=== PATIENT | male | born 1965 | race Caucasian/White ===

== ENCOUNTER 2016-12-27 13:18 | Inpatient (IN) ==
[2016-12-27 13:35] LABS: Bilirubin,Urine Negative (Negative); Blood,Urine Trace (Negative); Clarity,Urine Clear (Clear); Color,Urine Yellow (Yellow); Glucose,Urine (UA) Normal (Normal); Ketones,Urine Negative (Negative); Leukocyte Esterase,Urine Trace (Negative); Nitrite,Urine Negative (Negative); PH,Urine 6.5 pH Units (5.0-8.0); Protein,Urine Negative (Neg-Trace); Specific Gravity,Urine 1.022 (1.010-1.025); Urobilinogen,Urine Normal (Normal)
[2016-12-27 13:37] LABS: Bacteria,Urine None Seen per hpf (None-Few); Hyaline Casts,Urine None Seen per lpf (None-Few); Squamous Epithelial Cell,Urine Few per lpf (None-Few)
[2016-12-27 13:49] LABS: Basophils # 0.2 K/mcL (0.0-0.2); Basophils % 1.1 %; Eosinophils # 0.4 K/mcL (0.0-0.6); Hematocrit 48.1 % (37.5-50.1); Hemoglobin 16.3 g/dL (12.9-16.9); Immature Granulocytes % 0.4 % (0-4); Lymphocytes # 3.9 K/mcL (0.6-4.6); Lymphocytes % 27.8 %; Mean Corpuscular HGB Conc 33.9 g/dL (31.6-35.5); Mean Corpuscular Hemoglobin 28.5 pg (28.0-33.3); Mean Corpuscular Volume 84.1 fL (83.0-100.0); Mean Platelet Volume 9.8 fL (9.4-12.4); Monocytes # 0.9 K/mcL (0.0-1.3); Monocytes % 6.6 %; Neutrophils # 8.6 K/mcL (1.6-8.9); Platelet Count 269 K/mcL (140-400); Red Blood Count 5.72 M/mcL (4.19-5.50); Red Cell Distribution Width 13.2 % (11.5-14.5); Segmented Neutrophils % 61.1 %
[2016-12-27 14:04] LABS: Alanine Aminotransferase 33 Units/L (0-55); Albumin 3.7 g/dL (3.5-5.0); Alkaline Phosphatase 68 Units/L (38-126); Aspartate Amino Transferase 42 Units/L (5-34); BUN/Creatinine Ratio 14 (6-26); Bilirubin,Direct 0.1 mg/dL (0.0-0.5); Bilirubin,Indirect 0.1 mg/dL (0.0-1.2); Bilirubin,Total < 0.2 mg/dL (0.2-1.2); Blood Urea Nitrogen 16 mg/dL (8-26); Calcium 9.7 mg/dL (8.6-10.8); Carbon Dioxide 25 mEq/L (19-29); Chloride 104 mEq/L (98-109); Globulin 3.6 g/dL (2.4-3.5); Glucose 112 mg/dL (70-99); Lipase 568 Units/L (8-78); Osmolality,Calculated 292 (280-300); Potassium 3.8 mEq/L (3.5-4.5); Sodium 140 mEq/L (136-145); Total Protein 7.3 g/dL (6.0-8.3); eGFR For African Americans > 60 (> 60); eGFR For Non-African Americans > 60 (> 60)
[2016-12-27] MEDS ORDERED: Ondansetron 4 MG/2 ML VIAL IVP ONE (15:44)
[2016-12-27] MEDS ORDERED: 0.9 % Sodium Chloride 1,000 ML IVC ONE (15:44)
--- NOTE | 2016-12-27 15:51 | Emergency Department Note ---
Disposition Clinical Impression: Pancreatitis Qualifiers: Chronicity: acute Pancreatitis type: unspecified pancreatitis type Acute pancreatitis complication: unspecified Qualified Code(s): K85.90 - Acute pancreatitis without necrosis or infection, unspecified Disposition: Admitted As Inpatient Condition: Good Abdominal Pain HPI - General Chief Complaint: ED Abdominal Pain Stated Complaint: ABD Pain Time Seen by Provider: 12/27/16 15:30 Source: patient Mode of arrival: private vehicle Limitations: no limitations Nursing Notes Reviewed: Yes Vital Signs Reviewed: Yes - History of Present Illness HPI Narrative: 51-year-old male presents to the ER with a chief complaint of abdominal pain. Patient states it awoke him from sleep this morning. Reports it is around his epigastric area that radiates into his mid abdomen at times. Reports had issues with his gallbladder was functioning at 31% around 6 months ago but they elected not to remove it at that time. He has felt nauseated but no vomiting or diarrhea. No fevers at home. No sick contacts. History of appendectomy as a child. No other complaints. Pt Subjective Complaint: abdominal pain Onset (ago): hour(s) Consistency: intermittent Location: periumbilical, epigastric Pain Severity: mild Pain Scale: 2 Quality: aching Radiation: none Migration to: no migration Improves with: nothing Worsens with: nothing Associated symptoms: Reports: nausea. Denies: vomiting, diarrhea, fever, dysuria, hematuria Treatments prior to arrival: none - Related Data Home Medications Medication Instructions Recorded Confirmed Aspirin/Acetaminophen/Caffeine 1 tab PO BID PRN 10/07/15 12/27/16 [Excedrin Extra Strength Caplet] Lisinopril [Zestril] 5 mg PO DAILY 10/07/15 12/27/16 Multivitamin [Multi-Day Vitamins] 1 tab PO DAILY 10/07/15 12/27/16 hydroCHLOROthiazide 25 mg PO DAILY 10/07/15 12/27/16 [Hydrochlorothiazide] Allergies Allergy/AdvReac Type Severity Reaction Status Date / Time No Known Allergies Allergy Verified 12/27/16 19:14 All systems ED: reviewed and negative except as stated. Constitutional: Denies: fever Gastrointestinal: Reports: abdominal pain, nausea. Denies: vomiting, diarrhea Genitourinary: Denies: dysuria, hematuria Musculoskeletal: Reports: back pain Abdominal Pain PMH - Past Medical History Medical history: Reports: other Male Surgical History: Reports: no surgical history Psychiatric history: Reports: no psych history - Social History Smoking status: Current every day smoker Alcohol use: Reports: occasionally Drug use: Reports: none Physical Exam - General Limitations: no limitations General appearance: alert, in no apparent distress - Head Head exam: atraumatic, normocephalic - Eye Eye exam: Present: normal appearance - ENT ENT exam: normal exam - Neck Neck exam: Present: normal inspection - Chest Chest inspection: Present: normal inspection, symmetric chest wall rise - Respiratory Respiratory exam: Present: normal lung sounds bilaterally - Cardiovascular Cardiovascular exam: Present: regular rate, normal rhythm, normal heart sounds - Abdominal Exam Abdominal exam: Present: soft, tenderness (mild epigastric and eliud-umbilical tenderness to palpation). Absent: distention, guarding, rigidity - Extremities Exam Extremities exam: Present: normal inspection, full ROM - Expanded Upper Extremity Exam Shoulder exam: Present: normal inspection, full ROM Arm exam: Present: normal inspection, full ROM Elbow exam: Present: normal inspection, full ROM Forearm/Wrist exam: Present: normal inspection, full ROM Hand exam: Present: normal inspection, full ROM - Expanded Lower Extremity Exam Hip/Pelvis exam: Present: normal inspection, full ROM Upper leg exam: Present: normal inspection, full ROM Knee exam: Present: normal inspection, full ROM Lower leg exam: Present: normal inspection, full ROM Ankle exam: Present: normal inspection, full ROM Foot/toe exam: Present: normal inspection, full ROM Neurovascular/Tendon exam: Absent: motor deficit, sensory deficit - Neurological Exam Neurological exam: Present: alert - Psychiatric Psychiatric exam: Present: normal affect - Skin Skin exam: Present: warm, dry, intact Course Course Narrative: Patient seen and examined. No history of pancreatitis previously. We will obtain a CT scan of the abdomen and pelvis for evaluation. Patient declines anything for pain at this time. Vital Signs Temperature 98.8 F 12/27/16 13:26 Pulse Rate 87 12/27/16 13:26 Respiratory Rate 16 12/27/16 13:26 Blood Pressure 146/98 12/27/16 13:26 O2 Sat by Pulse Oximetry 95 12/27/16 13:26 Temperature 98.0 F 12/29/16 07:02 Pulse Rate 71 12/29/16 07:02 Respiratory Rate 16 12/29/16 07:02 Blood Pressure 123/77 12/29/16 07:02 O2 Sat by Pulse Oximetry 97 12/29/16 07:02 Oxygen Delivery Oxygen Delivery Room Air Abdominal Pain - MDM Narrative Medical decision making narrative: 51-year-old male presents to the ER due to abdominal pain. Woke him up from sleep last night. Noted to have a lipase here over 500. White count 14. LFTs and bilirubin within normal limits. CT scan shows no acute abnormalities. Patient admitted to the hospitalist service. - Lab Data Lab results reviewed: Yes I reviewed the patient's lab results. Result diagrams: 12/29/16 06:19 12/29/16 06:19 Lab Results 12/27/16 12/27/16 12/27/16 Range/Units 13:29 13:42 13:42 WBC 14.0 H (4.3-11.1) K/mcL RBC 5.72 H (4.19-5.50) M/mcL Hgb 16.3 (12.9-16.9) g/dL Hct 48.1 (37.5-50.1) % MCV 84.1 (83.0-100.0) fL MCH 28.5 (28.0-33.3) pg MCHC 33.9 (31.6-35.5) g/dL RDW 13.2 (11.5-14.5) % Plt Count 269 (140-400) K/mcL MPV 9.8 (9.4-12.4) fL Immature Gran % 0.4 (0-4) % Seg Neutrophils % 61.1 % Lymphocytes % 27.8 % Monocytes % 6.6 % Eosinophils % 3.0 % Basophils % 1.1 % Neutrophils # 8.6 (1.6-8.9) K/mcL Lymphocytes # 3.9 (0.6-4.6) K/mcL Monocytes # 0.9 (0.0-1.3) K/mcL Eosinophils # 0.4 (0.0-0.6) K/mcL Basophils # 0.2 (0.0-0.2) K/mcL Sodium 140 (136-145) mEq/L Potassium 3.8 (3.5-4.5) mEq/L Chloride 104 (98-109) mEq/L Carbon Dioxide 25 (19-29) mEq/L BUN 16 (8-26) mg/dL Creatinine 1.16 (0.72-1.25) mg/dL Est GFR ( Amer) > 60 (> 60) Est GFR (Non-Af Amer) > 60 (> 60) BUN/Creatinine Ratio 14 (6-26) Glucose 112 H (70-99) mg/dL Calculated Osmolality 292 (280-300) Calcium 9.7 (8.6-10.8) mg/dL Total Bilirubin < 0.2 L (0.2-1.2) mg/dL Direct Bilirubin 0.1 (0.0-0.5) mg/dL Indirect Bilirubin 0.1 (0.0-1.2) mg/dL AST 42 H (5-34) Units/L ALT 33 (0-55) Units/L Alkaline Phosphatase 68 (38-126) Units/L Serum Total Protein 7.3 (6.0-8.3) g/dL Albumin 3.7 (3.5-5.0) g/dL Globulin 3.6 H (2.4-3.5) g/dL Albumin/Globulin Ratio 1.0 L (1.1-2.2) Lipase 568 H (8-78) Units/L Urine Color Yellow (Yellow) Urine Clarity Clear (Clear) Urine pH 6.5 (5.0-8.0) pH Units Ur Specific [place] 1.022 (1.010-1.025) Urine Protein Negative (Neg-Trace) mg/dL Urine Glucose (UA) Normal (Normal) mg/dL Urine Ketones Negative (Negative) mg/dL Urine Blood Trace H (Negative) Urine Nitrite Negative (Negative) Urine Bilirubin Negative (Negative) Urine Urobilinogen Normal (Normal) mg/dL Ur Leukocyte Esterase Trace H (Negative) Urine Microscopic RBC 3-5 H (0-3) per hpf Urine Microscopic WBC 3-5 H (0-3) per hpf Ur Squamous Epith Cells Few (None-Few) per lpf Urine Bacteria None Seen (None-Few) per hpf Hyaline Casts None Seen (None-Few) per lpf Ur Culture Indicated? YES A (NO) - Radiology Data Radiology results reviewed: Yes I reviewed the patient's radiology results. Abdomen/Pelvis CT 12/27/16 15:44 IMPRESSION: Normal appearing pancreas without peripancreatic inflammatory stranding or fluid. No pancreatic duct dilatation. Cholelithiasis without evidence of cholecystitis. No intra or extrahepatic bile duct dilatation. Bilateral coarse nephrolithiasis without evidence of hydronephrosis. Largest calculus measures up to at least 12 mm in the left kidney. Hepatic steatosis with multiple benign hepatic cysts, not substantially changed since 2013. D/ : / 12/27/2016 17:39:46 Roberto Olvera / ruben Interpreting Provider: Roberto Olvera Attestation Statement - Attestation Attestation: I, Adonis Martinez, examined this patient and my medical decision-making was reviewed with the KNOWLEDGE ENGINEER/PA/Advanced Practice Nurse/Resident Physician. I agree with the documented findings, disposition and treatment plan as described except to the extent set forth below. 51-year-old male presents emergency Department with concerns of epigastric abdominal pain. Patient states symptoms have occurred before but were extreme throughout the night last night. Patient has an elevated lipase and will be admitted for treatment of pancreatitis. CT of the abdomen and pelvis was negative for acute mass. CT does show cholelithiasis without evidence of cholecystitis. Pain controlled emergency department. IV Fluids given in the emergency department.
[2016-12-27] MEDS ORDERED: Naloxone 0.4 MG/ML INJ IVP PRN (20:06)
[2016-12-27] MEDS ORDERED: *HR* HYDROcodone/Acet 5/325 mg TABLET PO PRN (20:22)
--- NOTE | 2016-12-27 20:35 | Internal Med History&Physical ---
Date of Encounter: 12/27/16 Time of Encounter: 19:30 Assessment and Plan (1) Pancreatitis Current visit: Yes Status: Acute Acute pancreatitis. BNP 568 on admission. Pt. states abdominal pain began last night and was resolving this morning when he ate lunch and pain worsened. Denies previous hx of sx. CT of the abdomen/pelvis shows normal-appearing pancreas without peripancreatic inflammatory stranding or fluid. No pancreatic duct dilatation. Cholelithiasis without evidence of cholecystitis. No intra or extrahepatic bile duct dilatation. Bilateral coarse nephrolithiasis without evidence of hydronephrosis. Largest calculus measures up to at least 12 mm in the left kidney. Hepatic steatosis with multiple benign hepatic cysts, not substantially changed since 2013. NPO except for medications. MRCP ordered. Ringers lactate 250 mL per hour. Continuous cardiac telemetry d/t hx of chest pain sx. Pt. at moderate risk for further morbidity based on sx and risk factors. Inpatient. Qualifiers: Chronicity: acute Pancreatitis type: unspecified pancreatitis type Acute pancreatitis complication: unspecified Qualified Code(s): K85.90 - Acute pancreatitis without necrosis or infection, unspecified (2) Tobacco abuse counseling Current visit: Yes Status: Acute Pt. counseled >10 minutes regarding the dangers of tobacco abuse on his current health and dx of HTN. Methods for successful quitting also discussed. Pt. expressed interest in quitting and confirmed understanding. 21 mg nicotine patch ordered daily. (3) Dizziness Current visit: Yes Status: Chronic Hx of chronic dizziness. Pt. states he has had dizzy spells for several months. States he has just completed 30-day heart monitor that was unremarkable. Also states that he had bilateral carotid Doppler imaging done which was unremarkable. Pt. was scheduled for stress test tomorrow in [place] w/ hedge fund accountant. Will re-schedule. Falls/safety precautions. Continuous cardiac telemetry. (4) HTN (hypertension) Current visit: Yes Status: Chronic Hx of chronic HTN. Monitor pt. and VS. Continue lisinopril 5 mg daily and will hold pts. hydrochlorothiazide until MRCP results. Communication order placed to notify provider if pts. systolic >175. Will increase lisinopril to 10 mg or administer hydralazine PRN if pt. becomes hypertensive past parameters. Qualifiers: Hypertension type: essential hypertension Qualified Code(s): I10 - Essential (primary) hypertension (5) Tobacco abuse Current visit: Yes Status: Chronic Hx of chronic tobacco abuse. Pt. states he smokes 1.5 PPD. Interested in quitting. (6) DVT prophylaxis Current visit: Yes Status: Acute Lovenox 40 mg 0600 daily for DVT prophylaxis. Monitor pt. for signs of bleeding. Internal Medicine - H&P: HPI Chief complaint: Abdominal pain Admitted From: Emergency Dept Plans for Post Hospital Care: Home History of present illness: Mr. Campbell is a 51 year old male with medical hx of HTN who presents from the ED with chief complaint of abdominal pain that began last night. Patient states he began to feel better this morning and ate lunch which made the pain worse. He denies ever having this pain before. He should also reports history of intermittent chest pain over the past several months for which she is followed by hedge fund accountant in [place]. Patient states he wore a heart monitor for 30 days which was unremarkable. Patient also states bilateral Dopplers of his neck were done due to chronic dizziness which were also unremarkable. Patient reports abdominal pain, cough r/t smoking, nausea, and dizziness but denies recent illness, fever, chills, vomiting, heart palpitations, changes in vision, unusual bleeding, numbness, tingling, pre-syncope, or syncope. Past Med Surg Social Fam HX - Past Medical History Source: patient, old records reviewed Medical history: hypertension Psychiatric history: no psych history - Past Surgical History Surgical History: appendectomy, herniorrhaphy - Social History Smoking Status: Current every day smoker Packs per day: 1.5 PPD Smokeless Tobacco Status: No Alcohol use: occasionally Drug use: none Occupational status: employed Current living situation: Home, With Family Activity Level: Independent ambulation Recent Out of Country Travel Within the Last 8 Weeks: No Exposure or Possible Exposure to Illness During Travel: No - Family History Father History Unknown: Yes Adopted: Yes Mother History Unknown: Yes Adopted: Yes Brother Race: Family Member Ethnicity: Non- Living Status: Still Living Hx Family Medical Disorders: No Internal Medicine - H&P: Meds Aspirin/Acetaminophen/Caffeine [Excedrin Extra Strength Caplet] 1 tab PO BID PRN 10/07/15 [History] Lisinopril [Zestril] 5 mg PO DAILY 10/07/15 [History] Multivitamin [Multi-Day Vitamins] 1 tab PO DAILY 10/07/15 [History] hydroCHLOROthiazide [Hydrochlorothiazide] 25 mg PO DAILY 10/07/15 [History] 3 Allergy/AdvReac Type Severity Reaction Status Date / Time No Known Allergies Allergy Verified 12/27/16 19:14 All Systems PM: A 10-system review of systems was performed and is negative for pertinent findings except as documented above in the HPI. - Constitutional Constitutional: no chills, no fever(s), no night sweats - EENT Eyes: no change in vision, no discharge, no pain, no photophobia Ears: no ear discharge, no ear pain, no tinnitus Nose, mouth and throat: no dysphagia, no nasal discharge, no neck pain, no sore throat - Breasts Breasts: as per HPI - Cardiovascular Cardiovascular ROS IM: as per HPI, chest pain (Reports intermittent chest pain for the past several months) - Respiratory Respiratory: as per HPI, cough - Gastrointestinal Gastrointestinal: as per HPI, abdominal pain, nausea - Genitourinary Genitourinary ROS male: as per HPI - Musculoskeletal Musculoskeletal ROS IM: no numbness, no tingling - Integumentary Integumentary IM: no rash, no unusual bruising - Neurological Neurological ROS: no confusion, no convulsions, no focal weakness, no numbness, no tingling, no tremor(s) - Psychiatric Psychiatric: as per HPI - Endocrine Endocrine IM: as per HPI - Hematologic/Lymphatic Hematologic/Lymphatic: no easy bruising - Allergic/Immunologic Allergic/Immunologic: as per HPI - Constitutional Vitals: Temp Pulse Resp BP Pulse Ox 97.7 F 65 14 154/94 94 12/27/16 19:14 12/27/16 19:14 12/27/16 19:14 12/27/16 19:14 12/27/16 19:14 General appearance: Present: cooperative, A&O X 3, pleasant, no acute distress, obese, answers questions appropriately - Head Head exam: Present: atraumatic, normal inspection, normocephalic - Eye Eye exam: Present: PERRL, conjuntiva pink, sclera anicteric Pupils: Present: PERRL - ENT ENT exam: Present: normal exam - Neck Neck exam general surgery: Present: normal inspection, supple, trachea midline. Absent: lymphadenopathy - Respiratory Respiratory exam: Present: CTAB. Absent: accessory muscle use, rales, rhonchi, wheezes - Cardiovascular Cardiovascular exam: Present: RRR, +S1, +S2. Absent: diastolic murmur, gallop, rubs, systolic murmur - GI/Abdominal GI/Abdominal exam: Present: normal bowel sounds, soft, tenderness, no peritoneal signs. Absent: distended - Rectal Rectal exam: Present: deferred - Additional comments: exam deferred. - Extremities Exam Extremities exam: Present: warm, radial pulses palpable and symmetrical. Absent : calf tenderness, cyanotic, pedal edema - Back Exam Back exam: Present: normal inspection - Neurological Exam Neurological exam: Present: CN II-XII intact, oriented X3, no focal deficits. Absent: pronater drift, facial droop, speech deficit - Psychiatric Psychiatric exam: Present: normal affect, normal mood - Skin Skin exam: Present: dry, intact Internal Med - H&P Results - Labs CBC & Chem 7: 12/27/16 13:42 12/27/16 13:42 - EKG Data EKG shows normal: sinus rhythm - EKG Data Prior EKG available for review: no EKG comments: 12/27/16 20:41 EKG dated 12/27/16 shows sinus rhtyhm with non-specific T-wave abnormality. - Diagnostic Studies CT scan - abdomen Additional comments: Impressions Abdomen/Pelvis CT 12/27/16 15:44 IMPRESSION: Normal appearing pancreas without peripancreatic inflammatory stranding or fluid. No pancreatic duct dilatation. Cholelithiasis without evidence of cholecystitis. No intra or extrahepatic bile duct dilatation. Bilateral coarse nephrolithiasis without evidence of hydronephrosis. Largest calculus measures up to at least 12 mm in the left kidney. Hepatic steatosis with multiple benign hepatic cysts, not substantially changed since 2013. D/ / 12/27/2016 17:39:46 Roberto Olvera / ruben Interpreting Provider: Roberto Olvera
[2016-12-27] MEDS: Ringers Solution, Lactated 1,000 ML IVC SCH (21:26)
[2016-12-27] MEDS: Nicotine 21 MG PATCH.TD24 TD SCH (21:27)
--- NOTE | 2016-12-27 22:45 | Event Note ---
Date of Encounter: 12/27/16 Time of Encounter: 23:00 Discussed with JESICA and agree with assessment and plan. Will treat pancreatitis with supportive care including nothing by mouth and fluid resuscitation in addition to pain control. Cholelithiasis noted on ultrasound; order MRCP for possible etiology. Will continue HCTZ for now (potential etiology for pancreatitis) as this has decreased frequency of patients nephrolithiasis.
[2016-12-28] MEDS: Ringers Solution, Lactated 1,000 ML IVC SCH ×4 (01:02→17:12)
[2016-12-28] MEDS: Acetaminophen 325 MG TABLET PO PRN ×2 (03:31→12:29)
[2016-12-28] MEDS: Ondansetron 4 MG/2 ML VIAL IVP PRN (03:36)
[2016-12-28 05:12] LABS: Basophils # 0.1 K/mcL (0.0-0.2); Basophils % 1.3 %; Eosinophils # 0.5 K/mcL (0.0-0.6); Eosinophils % 4.9 %; Hematocrit 42.2 % (37.5-50.1); Immature Granulocytes % 0.3 % (0-4); Immature Platelets 5.2 % (1.1-6.1); Lymphocytes # 3.9 K/mcL (0.6-4.6); Lymphocytes % 40.1 %; Mean Corpuscular HGB Conc 33.9 g/dL (31.6-35.5); Mean Corpuscular Hemoglobin 28.8 pg (28.0-33.3); Mean Corpuscular Volume 84.9 fL (83.0-100.0); Monocytes # 0.7 K/mcL (0.0-1.3); Monocytes % 6.7 %; Neutrophils # 4.5 K/mcL (1.6-8.9); Platelet Count 237 K/mcL (140-400); Red Blood Count 4.97 M/mcL (4.19-5.50); Red Cell Distribution Width 13.3 % (11.5-14.5); Segmented Neutrophils % 46.7 %
[2016-12-28 05:15] LABS: Hemoglobin 14.3 g/dL (12.9-16.9)
[2016-12-28 05:20] LABS: Alanine Aminotransferase 26 Units/L (0-55); Albumin/Globulin Ratio 1.2 (1.1-2.2); Alkaline Phosphatase 59 Units/L (38-126); Aspartate Amino Transferase 34 Units/L (5-34); BUN/Creatinine Ratio 13 (6-26); Bilirubin,Total 0.4 mg/dL (0.2-1.2); Blood Urea Nitrogen 13 mg/dL (8-26); Calcium 8.3 mg/dL (8.6-10.8); Carbon Dioxide 27 mEq/L (19-29); Chloride 107 mEq/L (98-109); Chol/HDL Ratio 5.1 (0-4.9); Cholesterol 133 mg/dL (< 200); Globulin 2.6 g/dL (2.4-3.5); Glucose 104 mg/dL (70-99); HDL Cholesterol 26 mg/dL (40-59); Hemoglobin A1C 5.4 %; LDL Cholesterol,Calculated 74 mg/dL (0-99); Magnesium 1.5 mg/dL (1.6-2.6); Osmolality,Calculated 292 (280-300); Potassium 3.2 mEq/L (3.5-4.5); Sodium 141 mEq/L (136-145); Triglycerides 166 mg/dL (< 150); eGFR For African Americans > 60 (> 60); eGFR For Non-African Americans > 60 (> 60)
[2016-12-28 05:21] LABS: Total Protein 5.6 g/dL (6.0-8.3)
[2016-12-28] MEDS: *HR* Enoxaparin 40 MG/0.4 ML SYRINGE SQ SCH (05:38)
[2016-12-28] MEDS ORDERED: hydroCHLOROthiazide 25 MG TABLET PO SCH (09:00)
[2016-12-28 09:08] LABS: Amylase 182 Units/L (25-125); Lipase 640 Units/L (8-78)
[2016-12-28] MEDS: Nicotine 21 MG PATCH.TD24 TD SCH (09:17)
[2016-12-28] MEDS: hydroCHLOROthiazide 25 MG TABLET PO SCH (09:18)
--- NOTE | 2016-12-28 09:21 | General Surgery Consult Note ---
<Ayleen Steel - Last Filed: 12/28/16 12:00> Date of Encounter: 12/28/16 Time of Encounter: 09:19 Assessment and Plan (1) Biliary dyskinesia Current Visit: Yes Status: Acute Assessment is benign at this time. MRCP is ordered for today. Worsening Amylase and lipase. Will review with Dr. Guillermo. Will likely need cholecystectomy this admission, timing pending; (2) Pancreatitis Current Visit: Yes Status: Acute See above Qualifiers: Chronicity: acute Pancreatitis type: unspecified pancreatitis type Acute pancreatitis complication: unspecified Qualified Code(s): K85.90 - Acute pancreatitis without necrosis or infection, unspecified (3) Smoking addiction Current Visit: Yes Status: Acute Scheduled duonebs IS Nicotine patch History of Present Illness Consult date: 12/28/16 (Dr. Rachelle Guillermo) Reason for consult: other Requesting physician: Kiko Richardson History of present illness: Consulted Surgeon: Dr. Rachelle Guillermo Reason for consult: Gallstone pancreatitis Past medical history obtained via chart review and patient interview Mr Campbell is a 51 year old male who has a past medical history of smoking addiction up to 2 packs per day for greater than 30 years, chronic and frequent kidney stones, hypertension, dizziness, nutcracker esophagus (per manometry study in 2016 for which he was referred to Dr. Babcock), frequent diarrhea (for which he underwent a colonoscopy-results noted below), bilateral inguinal hernias, occasional/recreational alcohol use, and denies illicit drug use. He had a colonoscopy in September [address] Guillermo which noted/removed 7 2- 3 mm polyps in the sigmoid colon and transverse colon that were removed with the cold biopsy (both areas noted to be hyperplastic polyps and was recommended to repeat colonoscopy in 3 years). HIDA scan in 2015 revealed billiary dyskenisia with a EF of 31% and the patient opted for conservative treatment at that time. Dr. Babcock saw the patient in 11/2015 for nutcracker esophagus and recommended and EGD if swallowing symptoms worsened and noted that the patient was "not interested in having his gall bladder removed" at that time. He reports a past medical history of an appendectomy, right laparotomy, BL hernia repair, and multiple lithotripsy. He presented on 12/27/2016 for complaints of abdominal discomfort that began the previous night (12/26/2016). He reports this is his first episode of this type of discomfort. He states the discomfort was in his epigastric and left abdomen area, radiated to his back, was sharp, associated with nausea without vomiting, aggravated by eating, and alleviating by not eating or drinking. He denies fevers or chills. He denies headache, dizziness, chest pain, shortness of breath, generalized weakness, black, bloody, or tarry stool, or urinary signs or symptoms. His hospital course thus far has included lab work which revealed a white blood cell count of 14.0 online 12/27 which is now normalized to 9.7, total bilirubin 0.2 normalized to 0.4, AST was 42 now 34, lipase was 568 , now 640, amylase 182. CTF's abdomen and pelvis with ITV and no oral contrast revealed normal appearing pancreas without pancreatic inflammatory stranding or fluid, no pancreatic duct dilation, cholelithiasis without evidence of cholecystitis, bilateral course nephrolitiasis without evidence of hydronephrosis; largest calculus measuring up to 12 mm left kidney, hepatic steatosis with multiple benign hepatic cyst not substantially change since 2013. An MRCP has been ordered, but is not yet completed. Past Med Surg Social Fam HX - Past Medical History Medical history: hypertension Psychiatric history: no psych history - Past Surgical History Surgical History: appendectomy, herniorrhaphy, other (lithotripsies) - Social History Smoking Status: Current every day smoker Packs per day: 1.5 PPD Smokeless Tobacco Status: No Alcohol use: occasionally Drug use: none - Family History Father History Unknown: Yes Adopted: Yes Mother History Unknown: Yes Adopted: Yes Brother Race: Family Member Ethnicity: Non- Living Status: Still Living Hx Family Medical Disorders: No Medications and Allergies Aspirin/Acetaminophen/Caffeine [Excedrin Extra Strength Caplet] 1 tab PO BID PRN 10/07/15 [History] Lisinopril [Zestril] 5 mg PO DAILY 10/07/15 [History] Multivitamin [Multi-Day Vitamins] 1 tab PO DAILY 10/07/15 [History] hydroCHLOROthiazide [Hydrochlorothiazide] 25 mg PO DAILY 10/07/15 [History] 3 Allergy/AdvReac Type Severity Reaction Status Date / Time No Known Allergies Allergy Verified 12/27/16 19:14 Review of Systems All systems PM: reviewed and no additional remarkable complaints except as stated All systems PM: A 10-system review of systems was performed and is negative for pertinent findings except as documented above in the HPI. General Surgery Exam Initial Vital Signs Temp Pulse Resp BP Pulse Ox 98.8 F 87 16 146/98 95 12/27/16 13:26 12/27/16 13:26 12/27/16 13:26 12/27/16 13:26 12/27/16 13:26 - General physical appearance well developed, well nourished, no distress - Eyes normal ocular movement - ENT normal mucosa, atraumatic, normocephalic - Neck trachea midline, no venous distension - Respiratory normal respiratory effort, clear to auscultation, other (Decreased) - Cardiovascular Cardiovascular exam: Present: RRR, no murmurs/rubs/gallops - Abdomen Abdomen general surgery: Present: bowel sounds present, soft, non tender Hernia: Present: none - Integumentary Integumentary general surgery: Present: warm and dry, no abnormal pigmentation - Neurologic Present: CN 2-12 grossly intact, normal coordination, normal sensation - Musculoskeletal Present: normal gait, normal posture - Psychiatric Psychiatric general surgery: Present: A&Ox3, appropriate, oriented to person, oriented to place, oriented to time, speech is normal, memory intact Exam Initial Vital Signs Temp Pulse Resp BP Pulse Ox 98.8 F 87 16 146/98 95 12/27/16 13:26 12/27/16 13:26 12/27/16 13:26 12/27/16 13:26 12/27/16 13:26 Results - Labs 12/28/16 04:43 12/28/16 04:43 Abnormal lab results Potassium 3.2 mEq/L (3.5-4.5) L 12/28/16 04:43 Glucose 104 mg/dL (70-99) H 12/28/16 04:43 POC Glucose 105 (58-89) H 12/28/16 05:19 Calcium 8.3 mg/dL (8.6-10.8) L 12/28/16 04:43 Magnesium 1.5 mg/dL (1.6-2.6) L 12/28/16 04:43 Serum Total Protein 5.6 g/dL (6.0-8.3) L D 12/28/16 04:43 Albumin 3.0 g/dL (3.5-5.0) L 12/28/16 04:43 Triglycerides 166 mg/dL (< 150) H 12/28/16 04:43 VLDL Cholesterol, Calc 33 mg/dL (< 31) H 12/28/16 04:43 HDL Cholesterol 26 mg/dL (40-59) L 12/28/16 04:43 Cholesterol/HDL Ratio 5.1 (0-4.9) H 12/28/16 04:43 Amylase 182 Units/L (25-125) H 12/28/16 04:43 Lipase 640 Units/L (8-78) H 12/28/16 04:43 Urine Blood Trace (Negative) H 12/27/16 13:29 Ur Leukocyte Esterase Trace (Negative) H 12/27/16 13:29 Urine Microscopic RBC 3-5 per hpf (0-3) H 12/27/16 13:29 Urine Microscopic WBC 3-5 per hpf (0-3) H 12/27/16 13:29 Ur Culture Indicated? YES (NO) A 12/27/16 13:29 Diabetes panel 12/28/16 12/28/16 Range/Units 04:43 04:43 Sodium 141 (136-145) mEq/L Potassium 3.2 L (3.5-4.5) mEq/L Chloride 107 (98-109) mEq/L Carbon Dioxide 27 (19-29) mEq/L BUN 13 (8-26) mg/dL Creatinine 0.98 (0.72-1.25) mg/dL Glucose 104 H (70-99) mg/dL Hemoglobin A1c 5.4 ( - 5.6) % Calcium 8.3 L (8.6-10.8) mg/dL AST 34 (5-34) Units/L ALT 26 (0-55) Units/L Alkaline Phosphatase 59 (38-126) Units/L Albumin 3.0 L (3.5-5.0) g/dL Triglycerides 166 H (< 150) mg/dL HDL Cholesterol 26 L (40-59) mg/dL Calcium panel 12/28/16 Range/Units 04:43 Calcium 8.3 L (8.6-10.8) mg/dL Albumin 3.0 L (3.5-5.0) g/dL Pituitary panel 12/28/16 Range/Units 04:43 Sodium 141 (136-145) mEq/L Potassium 3.2 L (3.5-4.5) mEq/L Chloride 107 (98-109) mEq/L Carbon Dioxide 27 (19-29) mEq/L BUN 13 (8-26) mg/dL Creatinine 0.98 (0.72-1.25) mg/dL Glucose 104 H (70-99) mg/dL Calcium 8.3 L (8.6-10.8) mg/dL Adrenal panel 12/28/16 Range/Units 04:43 Sodium 141 (136-145) mEq/L Potassium 3.2 L (3.5-4.5) mEq/L Chloride 107 (98-109) mEq/L Carbon Dioxide 27 (19-29) mEq/L BUN 13 (8-26) mg/dL Creatinine 0.98 (0.72-1.25) mg/dL Glucose 104 H (70-99) mg/dL Calcium 8.3 L (8.6-10.8) mg/dL Total Bilirubin 0.4 (0.2-1.2) mg/dL AST 34 (5-34) Units/L ALT 26 (0-55) Units/L Alkaline Phosphatase 59 (38-126) Units/L Albumin 3.0 L (3.5-5.0) g/dL All other labs normal. - Imaging CT scan - abdomen: report reviewed CT scan - chest: report reviewed Additional studies: Abdomen/Pelvis CT 12/27/16 15:44 IMPRESSION: Normal appearing pancreas without peripancreatic inflammatory stranding or fluid. No pancreatic duct dilatation. Cholelithiasis without evidence of cholecystitis. No intra or extrahepatic bile duct dilatation. Bilateral coarse nephrolithiasis without evidence of hydronephrosis. Largest calculus measures up to at least 12 mm in the left kidney. Hepatic steatosis with multiple benign hepatic cysts, not substantially changed since 2013. D/ / 12/27/2016 17:39:46 Roberto Olvera / ruben Interpreting Provider: Roberto Olvera Consult Discharge Plan - Plan Referrals: Bulmaro Georges MD [Primary Care Provider] - <Rachelle Guillermo - Last Filed: 12/28/16 18:12> Date of Encounter: 12/28/16 Time of Encounter: 14:40 Assessment and Plan (1) Biliary dyskinesia Current Visit: Yes Status: Chronic patient with know biliary dyskinesia patient does not need MRCP as CT shows no duct dilation and LFT all are wnl, although there is material within the gallbladder possibly stones. will plan cholangiograms in OR to evaluate for CBD stone and if present will consult GI for ERCP (2) Pancreatitis Current Visit: Yes Status: Acute TG minimally elevated pancreatitis labs decreasing patient with known biliary dyskinesia, will plan lap cholecystectomy, possible cholangiograms/open, risks and benefits discussed and he wishes to proced ok clears to today and for breakfast tomorrow am,then npo for surgery tomorrow evening Qualifiers: Chronicity: acute Pancreatitis type: unspecified pancreatitis type Acute pancreatitis complication: unspecified Qualified Code(s): K85.90 - Acute pancreatitis without necrosis or infection, unspecified Past Med Surg Social Fam HX - Past Medical History Source: patient Medical history: kidney stones, other (biliary dyskinesia, nutracker esophagus) - Past Surgical History Surgical History: herniorrhaphy ( lower abdomen with mesh), other - Social History Occupational status: employed Current living situation: Home Review of Systems All systems PM: reviewed and no additional remarkable complaints except as stated All systems PM: A 10-system review of systems was performed and is negative for pertinent findings except as documented above in the HPI. General Surgery Exam Initial Vital Signs Temp Pulse Resp BP Pulse Ox 98.8 F 87 16 146/98 95 12/27/16 13:26 12/27/16 13:26 12/27/16 13:26 12/27/16 13:26 12/27/16 13:26 - General physical appearance well developed, well nourished, no distress, no pain - Eyes PERRL, normal ocular movement - ENT normal mucosa, normocephalic - Neck trachea midline - Respiratory normal expansion, clear to auscultation - Cardiovascular Cardiovascular exam: Present: RRR - Abdomen Abdomen general surgery: Present: bowel sounds present, soft, non tender. Absent: guarding, rebound - Rectum Rectum: Present: normal sphincter tone - Integumentary Integumentary general surgery: Present: warm and dry, no abnormal pigmentation - Neurologic Present: CN 2-12 grossly intact, normal sensation - Musculoskeletal Present: normal gait, normal posture - Psychiatric Psychiatric general surgery: Present: A&Ox3, oriented to time, speech is normal Exam Initial Vital Signs Temp Pulse Resp BP Pulse Ox 98.8 F 87 16 146/98 95 12/27/16 13:26 12/27/16 13:26 12/27/16 13:26 12/27/16 13:26 12/27/16 13:26 Results - Labs 12/28/16 04:43 12/28/16 04:43 Abnormal lab results Potassium 3.2 mEq/L (3.5-4.5) L 12/28/16 04:43 Glucose 104 mg/dL (70-99) H 12/28/16 04:43 POC Glucose 105 (58-89) H 12/28/16 05:19 Calcium 8.3 mg/dL (8.6-10.8) L 12/28/16 04:43 Magnesium 1.5 mg/dL (1.6-2.6) L 12/28/16 04:43 Serum Total Protein 5.6 g/dL (6.0-8.3) L D 12/28/16 04:43 Albumin 3.0 g/dL (3.5-5.0) L 12/28/16 04:43 Triglycerides 166 mg/dL (< 150) H 12/28/16 04:43 VLDL Cholesterol, Calc 33 mg/dL (< 31) H 12/28/16 04:43 HDL Cholesterol 26 mg/dL (40-59) L 12/28/16 04:43 Cholesterol/HDL Ratio 5.1 (0-4.9) H 12/28/16 04:43 Amylase 182 Units/L (25-125) H 12/28/16 04:43 Lipase 640 Units/L (8-78) H 12/28/16 04:43 Urine Blood Trace (Negative) H 12/27/16 13:29 Ur Leukocyte Esterase Trace (Negative) H 12/27/16 13:29 Urine Microscopic RBC 3-5 per hpf (0-3) H 12/27/16 13:29 Urine Microscopic WBC 3-5 per hpf (0-3) H 12/27/16 13:29 Ur Culture Indicated? YES (NO) A 12/27/16 13:29 Diabetes panel 12/28/16 12/28/16 Range/Units 04:43 04:43 Sodium 141 (136-145) mEq/L Potassium 3.2 L (3.5-4.5) mEq/L Chloride 107 (98-109) mEq/L Carbon Dioxide 27 (19-29) mEq/L BUN 13 (8-26) mg/dL Creatinine 0.98 (0.72-1.25) mg/dL Glucose 104 H (70-99) mg/dL Hemoglobin A1c 5.4 ( - 5.6) % Calcium 8.3 L (8.6-10.8) mg/dL AST 34 (5-34) Units/L ALT 26 (0-55) Units/L Alkaline Phosphatase 59 (38-126) Units/L Albumin 3.0 L (3.5-5.0) g/dL Triglycerides 166 H (< 150) mg/dL HDL Cholesterol 26 L (40-59) mg/dL Calcium panel 12/28/16 Range/Units 04:43 Calcium 8.3 L (8.6-10.8) mg/dL Albumin 3.0 L (3.5-5.0) g/dL Pituitary panel 12/28/16 Range/Units 04:43 Sodium 141 (136-145) mEq/L Potassium 3.2 L (3.5-4.5) mEq/L Chloride 107 (98-109) mEq/L Carbon Dioxide 27 (19-29) mEq/L BUN 13 (8-26) mg/dL Creatinine 0.98 (0.72-1.25) mg/dL Glucose 104 H (70-99) mg/dL Calcium 8.3 L (8.6-10.8) mg/dL Adrenal panel 12/28/16 Range/Units 04:43 Sodium 141 (136-145) mEq/L Potassium 3.2 L (3.5-4.5) mEq/L Chloride 107 (98-109) mEq/L Carbon Dioxide 27 (19-29) mEq/L BUN 13 (8-26) mg/dL Creatinine 0.98 (0.72-1.25) mg/dL Glucose 104 H (70-99) mg/dL Calcium 8.3 L (8.6-10.8) mg/dL Total Bilirubin 0.4 (0.2-1.2) mg/dL AST 34 (5-34) Units/L ALT 26 (0-55) Units/L Alkaline Phosphatase 59 (38-126) Units/L Albumin 3.0 L (3.5-5.0) g/dL All other labs normal. - Imaging CT scan - abdomen: report reviewed, image reviewed CT scan - chest: report reviewed - Attending Attestation I have personally performed a face to face evaluation on this patient. I have reviewed and agree with the care plan. History and Exam by me shows:
[2016-12-28] MEDS: Ipratropium/Albuterol Neb 3 ML IH SCH ×5 (11:52→23:40)
[2016-12-28] MEDS: Multivit/Ca/Min/Fe/FA 1 TAB TABLET PO SCH (12:24)
--- NOTE | 2016-12-28 15:43 | Internal Med Progress Note ---
Date of Encounter: 12/28/16 Time of Encounter: 09:15 - Assessment and plan (1) Pancreatitis Current Visit: Yes Status: Acute Assessment and plan: Possible biliary pancreatitis. Consulted surgery for recommendations. Most likely patient will need laparoscopic cholecystectomy. Lipase and amylase remained elevated. Patient's symptoms are improving. Moderate risk for complications. Qualifiers: Chronicity: acute Pancreatitis type: unspecified pancreatitis type Acute pancreatitis complication: unspecified Qualified Code(s): K85.90 - Acute pancreatitis without necrosis or infection, unspecified (2) Cholelithiasis Current Visit: Yes Status: Acute Qualifiers: Cholelithiasis location: gallbladder Cholecystitis presence: without cholecystitis Biliary obstruction: without biliary obstruction Qualified Code(s): K80.20 - Calculus of gallbladder without cholecystitis without obstruction (3) Chest pain Current Visit: Yes Status: Acute Assessment and plan: Most likely due to patient's prior diagnosis of nutcracker esophagus/ hypertensive peristalsis. We will check troponins as patient had been referred for cardiac stress test as outpatient. Does not have any typical features of angina. Do not believe patient is cardiac related chest pain at this time. Qualifiers: Chest pain type: other chest pain Qualified Code(s): R07.89 - Other chest pain; R07.8 - Other chest pain (4) Biliary dyskinesia Current Visit: Yes Status: Acute Assessment and plan: Patient's prior HIDA scan suggested biliary dyskinesia. Surgery has been consulted for recommendations. (5) DVT prophylaxis Current Visit: Yes Status: Acute Assessment and plan: With Lovenox subcutaneous (6) HTN (hypertension) Current Visit: Yes Status: Chronic Assessment and plan: Well-controlled Qualifiers: Hypertension type: essential hypertension Qualified Code(s): I10 - Essential (primary) hypertension (7) Tobacco abuse Current Visit: Yes Status: Chronic Assessment and plan: On nicotine patch (8) Dizziness Current Visit: Yes Status: Chronic Assessment and plan: No new episodes of dizziness today. - Subjective Interval history: Patient is awake and alert. Denies any abdominal pain at this time. Complains of some chest discomfort which is chronic for the get worse intermittently. Denies any shortness of breath. No nausea or vomiting at this time - Constitutional Vitals: Temp Pulse Resp BP Pulse Ox 97.9 F 61 18 129/80 95 12/28/16 14:45 12/28/16 14:45 12/28/16 15:09 12/28/16 14:45 12/28/16 15:09 General appearance: Present: cooperative, A&O X 3, pleasant, no acute distress, obese, answers questions appropriately - Neck Neck exam general surgery: Present: supple, trachea midline. Absent: lymphadenopathy - Respiratory Respiratory exam: Present: CTAB. Absent: accessory muscle use, rales, rhonchi, wheezes - Cardiovascular Cardiovascular exam: Present: RRR, +S1, +S2. Absent: diastolic murmur, gallop, rubs, systolic murmur - GI/Abdominal GI/Abdominal exam: Present: normal bowel sounds, soft, no peritoneal signs. Absent: distended, tenderness - Extremities Exam Extremities exam: Present: warm, radial pulses palpable and symmetrical. Absent : calf tenderness, cyanotic, pedal edema - Neurological Exam Neurological exam: Present: alert, oriented X3, no focal deficits. Absent: facial droop, speech deficit Internal Medicine: Result - Labs CBC & Chem 7: 12/28/16 04:43 12/28/16 04:43 Labs: Short CBC 12/28/16 Range/Units 04:43 WBC 9.7 (4.3-11.1) K/mcL Hgb 14.3 D (12.9-16.9) g/dL Hct 42.2 (37.5-50.1) % Plt Count 237 (140-400) K/mcL Neutrophils # 4.5 (1.6-8.9) K/mcL BMP 12/28/16 04:43 Sodium 141 Potassium 3.2 L Chloride 107 Carbon Dioxide 27 BUN 13 Creatinine 0.98 Glucose 104 H Calcium 8.3 L Cardiac Enzymes 12/28/16 Range/Units 10:45 Troponin I 0.04 H* (0-0.03) ng/mL Liver Function 12/28/16 Range/Units 04:43 Total Bilirubin 0.4 (0.2-1.2) mg/dL AST 34 (5-34) Units/L ALT 26 (0-55) Units/L Alkaline Phosphatase 59 (38-126) Units/L Albumin 3.0 L (3.5-5.0) g/dL Consult Discharge Plan - Plan Referrals: Bulmaro Georges MD [Primary Care Provider] -
[2016-12-29] MEDS: Ringers Solution, Lactated 1,000 ML IVC SCH ×2 (00:26→10:56)
[2016-12-29] MEDS: Nicotine 21 MG PATCH.TD24 TD SCH (00:29)
[2016-12-29] MEDS: Ipratropium/Albuterol Neb 3 ML IH SCH ×6 (04:25→23:39)
--- NOTE | 2016-12-29 05:42 | Electrocardiograph Report ---
[address] [place], [place] [address] Test Date: 2016-12-27 Pat Name: Geraldo Campbell Department: 115 Room: 3A46 Gender: M [employer]: : 1965 Requested By: Eligio De La Cruz Order Number: [id number] Reading MD: Darren Rogers MD Measurements Intervals [place] Rate: 64 P: 34 IN: 172 QRS: 35 QRSD: 98 T: 51 QT: 431 QTc: 440 Interpretive Statements SINUS RHYTHM Electronically Signed On 12-29-2016 5:40:27 EST by Darren Rogers MD
[2016-12-29] MEDS: *HR* Enoxaparin 40 MG/0.4 ML SYRINGE SQ SCH (06:32)
[2016-12-29 06:46] LABS: Basophils # 0.1 K/mcL (0.0-0.2); Basophils % 1.1 %; Eosinophils # 0.3 K/mcL (0.0-0.6); Eosinophils % 2.7 %; Hemoglobin 13.4 g/dL (12.9-16.9); Immature Granulocytes % 0.3 % (0-4); Lymphocytes # 2.9 K/mcL (0.6-4.6); Mean Corpuscular HGB Conc 32.7 g/dL (31.6-35.5); Mean Corpuscular Hemoglobin 28.2 pg (28.0-33.3); Mean Corpuscular Volume 86.1 fL (83.0-100.0); Monocytes # 0.6 K/mcL (0.0-1.3); Monocytes % 6.3 %; Platelet Count 217 K/mcL (140-400); Red Blood Count 4.76 M/mcL (4.19-5.50); Red Cell Distribution Width 13.3 % (11.5-14.5); Segmented Neutrophils % 60.6 %
[2016-12-29 07:03] LABS: Alanine Aminotransferase 26 Units/L (0-55); Albumin 3.1 g/dL (3.5-5.0); Albumin/Globulin Ratio 1.1 (1.1-2.2); Alkaline Phosphatase 54 Units/L (38-126); Amylase 72 Units/L (25-125); Aspartate Amino Transferase 33 Units/L (5-34); BUN/Creatinine Ratio 9 (6-26); Bilirubin,Total 0.4 mg/dL (0.2-1.2); Blood Urea Nitrogen 9 mg/dL (8-26); Calcium 8.1 mg/dL (8.6-10.8); Carbon Dioxide 27 mEq/L (19-29); Chloride 109 mEq/L (98-109); Globulin 2.7 g/dL (2.4-3.5); Glucose 110 mg/dL (70-99); Lipase 45 Units/L (8-78); Osmolality,Calculated 295 (280-300); Potassium 3.2 mEq/L (3.5-4.5); Sodium 143 mEq/L (136-145); Total Protein 5.8 g/dL (6.0-8.3); eGFR For African Americans > 60 (> 60); eGFR For Non-African Americans > 60 (> 60)
[2016-12-29] MEDS: hydroCHLOROthiazide 25 MG TABLET PO SCH (08:18)
[2016-12-29] MEDS: Multivit/Ca/Min/Fe/FA 1 TAB TABLET PO SCH (08:20)
[2016-12-29] MEDS ORDERED: 0.9 % Sodium Chloride w KCl 20 MEQ/1,000 ML MLS IVC SCH ×2 (12:00→21:40)
[2016-12-29] MEDS ORDERED: Ondansetron 4 MG/2 ML VIAL ONE ×2 (13:42→19:27)
[2016-12-29] MEDS ORDERED: *HR* Rocuronium Bromide 50 MG/5 ML VIAL ONE (13:42)
[2016-12-29] MEDS ORDERED: Dexamethasone 4 MG/ML VIAL ONE ×2 (13:42→19:27)
[2016-12-29] MEDS ORDERED: Lidocaine -MPF 4% 5 ML AMPUL ONE (13:42)
[2016-12-29] MEDS ORDERED: *HR* Midazolam HCl 2 MG/2 ML VIAL ONE ×2 (13:42→16:48)
[2016-12-29] MEDS ORDERED: *HR* FentaNYL (PF) 100 MCG/2 ML VIAL ONE ×3 (13:42→19:26)
[2016-12-29] MEDS ORDERED: *HR* Succinylcholine 200 MG/10 ML VIAL IVP ONE (13:42)
[2016-12-29] MEDS ORDERED: *HR* Propofol 200 MG/20 ML VIAL IVP ONE ×2 (13:42→16:48)
[2016-12-29] MEDS ORDERED: Lidocaine -MPF 2% 2 ML VIAL ONE ×2 (13:42→17:47)
--- NOTE | 2016-12-29 14:02 | Internal Med Progress Note ---
Date of Encounter: 12/29/16 Time of Encounter: 09:45 - Assessment and plan (1) Pancreatitis Current Visit: Yes Status: Acute Assessment and plan: Acute biliary pancreatitis. I Paes and amylase have normalized. Plan for laparoscopic cholecystectomy later today. Tolerating clear liquid diet well. Qualifiers: Chronicity: acute Pancreatitis type: biliary Acute pancreatitis complication: no infection or necrosis Qualified Code(s): K85.10 - Biliary acute pancreatitis without necrosis or infection (2) Cholelithiasis Current Visit: Yes Status: Acute Assessment and plan: Laparoscopic cholecystectomy plan for later today Qualifiers: Cholelithiasis location: gallbladder Cholecystitis presence: without cholecystitis Biliary obstruction: without biliary obstruction Qualified Code(s): K80.20 - Calculus of gallbladder without cholecystitis without obstruction (3) Chest pain Current Visit: Yes Status: Acute Assessment and plan: With mild stable troponin elevation. No active chest pain at this time. EKG shows normal sinus rhythm without any acute ST segment changes. Could be related to hypertensive peristalsis/nutcracker esophagus. Qualifiers: Chest pain type: other chest pain Qualified Code(s): R07.89 - Other chest pain; R07.8 - Other chest pain (4) Biliary dyskinesia Current Visit: Yes Status: Chronic Assessment and plan: Plan for laparoscopic cholecystectomy today (5) DVT prophylaxis Current Visit: Yes Status: Acute Assessment and plan: On Lovenox (6) HTN (hypertension) Current Visit: Yes Status: Chronic Assessment and plan: Well-controlled Qualifiers: Hypertension type: essential hypertension Qualified Code(s): I10 - Essential (primary) hypertension (7) Tobacco abuse Current Visit: Yes Status: Chronic Assessment and plan: On nicotine patch (8) Dizziness Current Visit: Yes Status: Chronic Assessment and plan: Being worked up as outpatient. No abnormalities on telemetry. Follow-up outpatient with PCP - Subjective Interval history: Patient is awake and alert. No new complaints at this time. No abdominal pain. No chest pain at this time. No dizziness or lightheadedness - Constitutional Vitals: Temp Pulse Resp BP Pulse Ox 97.7 F 72 18 133/82 93 12/29/16 10:14 12/29/16 10:14 12/29/16 10:14 12/29/16 10:14 12/29/16 10:14 General appearance: Present: cooperative, A&O X 3, pleasant, no acute distress, obese, answers questions appropriately - Neck Neck exam general surgery: Present: supple, trachea midline. Absent: lymphadenopathy - Cardiovascular Cardiovascular exam: Present: RRR, +S1, +S2. Absent: diastolic murmur, gallop, rubs, systolic murmur - GI/Abdominal GI/Abdominal exam: Present: normal bowel sounds, soft, no peritoneal signs. Absent: distended, tenderness Internal Medicine: Result - Labs CBC & Chem 7: 12/29/16 06:19 12/29/16 06:19 Labs: Short CBC 12/29/16 Range/Units 06:19 WBC 10.0 (4.3-11.1) K/mcL Hgb 13.4 (12.9-16.9) g/dL Hct 41.0 (37.5-50.1) % Plt Count 217 (140-400) K/mcL Neutrophils # 6.0 (1.6-8.9) K/mcL BMP 12/29/16 06:19 Sodium 143 Potassium 3.2 L Chloride 109 Carbon Dioxide 27 BUN 9 Creatinine 0.99 Glucose 110 H Calcium 8.1 L Cardiac Enzymes 12/28/16 Range/Units 16:53 Troponin I 0.04 H* (0-0.03) ng/mL Liver Function 12/29/16 Range/Units 06:19 Total Bilirubin 0.4 (0.2-1.2) mg/dL AST 33 (5-34) Units/L ALT 26 (0-55) Units/L Alkaline Phosphatase 54 (38-126) Units/L Albumin 3.1 L (3.5-5.0) g/dL Consult Discharge Plan - Plan Referrals: Bulmaro Georges MD [Primary Care Provider] -
[2016-12-29] MEDS ORDERED: Albuterol 2.5 MG/3 ML NEBULIZER IH ONE (18:22)
--- NOTE | 2016-12-29 18:42 | Anesthesia Evaluation PreOp ---
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 Any Significant HX Other Medical History: Denies Any Significant HX Anesthesia History: No Prior Anesthetic Complications Alcohol Use: occasionally Drug use: none Medications and Allergies Aspirin/Acetaminophen/Caffeine [Excedrin Extra Strength Caplet] 1 tab PO BID PRN 10/07/15 [History] Lisinopril [Zestril] 5 mg PO DAILY 10/07/15 [History] Multivitamin [Multi-Day Vitamins] 1 tab PO DAILY 10/07/15 [History] hydroCHLOROthiazide [Hydrochlorothiazide] 25 mg PO DAILY 10/07/15 [History] 3 Allergy/AdvReac Type Severity Reaction Status Date / Time No Known Allergies Allergy Verified 12/27/16 19:14 - Meds/Allergy Pre-op Review Medications Reviewed: Yes Allergies Reviewed: Yes Beta Blockers on Current Med List: No Anesthesia Results - Labs 12/29/16 06:19 12/29/16 06:19 - Imaging EKG: report reviewed (SR) Anesthesia Exam O2 Sat Weight 106.2 kg O2 Sat by Pulse Oximetry 97 O2 Sat by Pulse Oximetry 93 O2 Sat by Pulse Oximetry 98 O2 Sat by Pulse Oximetry 97 O2 Sat by Pulse Oximetry 96 O2 Sat by Pulse Oximetry 97 O2 Sat by Pulse Oximetry 94 O2 Sat by Pulse Oximetry 95 O2 Sat by Pulse Oximetry 93 Vital Signs Temp Pulse Resp BP Pulse Ox 98.8 F 87 16 146/98 95 12/27/16 13:26 12/27/16 13:26 12/27/16 13:26 12/27/16 13:26 12/27/16 13:26 Height: 6'2 Weight: 234 lbs NPO (# of Hours): MN Pain Scale: 0 - HEENT Pupil (Motor): Pupils equal, EOMI Mallampati: II Teeth: Normal Oral Opening: Greater than 3 - ASSISTANT BRANCH MANAGER LOC: Oriented ASSISTANT BRANCH MANAGER Motor: Normal RUE, Normal LUE, Normal RLE, Normal LLE, Normal Face ASSISTANT BRANCH MANAGER Sensory: Normal: RUE, LUE, RLE, LLE, Face - Cardiac Rhythm: Regular Murmur: None JVD: No Carotid Bruit: No - Pulmonary Breath Sounds: bilateral Clear Respiratory Effort: Symmetrical Anesthesia Assess/Plan ASA Score: 2 Modified G[place] Scale for Level of Consciousness: Cooperative, oriented, and tranquil Anesthetic Plan: General Monitoring Plan: Standard Monitors Recovery Plan: PACU (Discussed GA, agrees to proceed)
[2016-12-29] MEDS ORDERED: Famotidine 20 MG/2 ML VIAL ONE (18:45)
[2016-12-29] MEDS ORDERED: Acetaminophen IV 1,000 MG/100 ML INFUS..BTL ONE (18:45)
[2016-12-29] MEDS ORDERED: CefOXitin 2,000 MG VIAL ONE (19:12)
[2016-12-29] MEDS ORDERED: *HR* HYDROmorphone (PF) 1 MG/ML SYRINGE IVP PRN ×2 (19:14→21:40)
[2016-12-29] MEDS ORDERED: Ondansetron 4 MG/2 ML VIAL IVP PRN ×2 (19:14→21:40)
[2016-12-29] MEDS ORDERED: *HR* HYDROmorphone 2 MG/ML SYRINGE ONE (19:31)
--- NOTE | 2016-12-29 20:05 | Operative Note ---
Date of procedure: 12/29/16 Pre-op diagnosis: biliary dyskinesia, cholelithiasis/pancreatitis Post-op diagnosis: same Procedure: laparoscopic cholecystectomy with intra=op cholangiograms Complications: none immediate Anesthesia: GETA, local Local Anesthetics: 0.5% Sensorcaine HCL SubQ (cc) (30), Isovue 300 Intravenous ( cc) Surgeon: Rachelle Guillermo [employer] Laborer: Samra Rodriguez Estimated blood loss (cc): 5 Specimen: gallbladder Condition: stable Disposition: PACU Procedure in Detail: The patient was brought into the operating suite and placed supine on the operating table. Sign-in was performed and everyone was in agreement. Anesthesia was induced and patient was endotracheally intubated by anesthesia without incident and they also placed an OG tube. The abdomen was prepped and draped in the usual sterile fashion. A timeout was performed again everyone was in agreement. Upper quadrant incision was made through the skin and the subcutaneous tissue. A Veress needle was placed in this and water drop test confirmed placement and the abdomen was insufflated. The abdomen was entered with a 5 mm 0 degree laparoscope on a 5 mm XL trocar. The area under entry was visualized and there was no apparent bowel injury or bleeding. The anterior abdominal wall was evaluated for mesh as the patient said he had a ventral hernia repair with mesh. There was no mesh in the ventral wall but he had a right inguinal hernia repair with mesh. A supraumbilical incision was made through the skin into the subcutaneous tissue with an 11 blade. A 12 mm port was then placed under direct visualization. A 5 mm subxiphoid port was placed under direct visualization after first incising the skin with an 11 blade. A right upper quadrant subcostal position midclavicular line 5 mm port was placed under direct visualization after first incising skin with 11 blade. The last 5 mm port was placed in the right upper quadrant subcostal position anterior axillary line after first incising the skin with an 11 blade. The patient was placed in steep reverse Trendelenburg left side down position. The dome of the gallbladder was grasped and retracted cephalad. Omental adhesions to the body and infundibulum of the gallbladder were taken down bluntly with the [place]. The infundibulum was grasped and retracted laterally. Using the [place] we dissected out the cystic duct and cystic artery. A 5 mm Hemoclip was placed proximally on the cystic artery. A 5 mm metal Hemoclip was placed proximally on the cystic duct. The cystic duct was partially transected with curved scissors. Using the Reynolds clamp, the cholangiocatheter was introduced into the partially transected cystic duct with the [place]. A metal 5 mm hemoclip was placed across the proximal cystic duct and the cholangiocatheter. The catheter flushed easily. The patient was placed in Trendelenberg position. Cholangiograms were obtained showing contrast up into the left and right intrahepatic ducts down through the common hepatic and common bile duct into the duodenum. Isovue was used for the cholangiograms, patient was returned to reverse Trendelenburg left side down position. The clip on the cholangiocatheter and proximal cystic duct was removed as well as the cholangiocatheter. Three 5 mm hemoclips were placed proximally on the cystic duct and it was transected with curved scissors. Another 5 mm hemoclip was placed proximally on the cystic artery one distally and it was transected with curved scissors. The gallbladder was removed off the cystic plate with the Bovie. Any bleeding points were stopped with the Bovie. The gallbladder was placed in a laparoscopic Endo Catch bag and removed via the supraumbilical incision site. The inferior edge of the liver was bluntly retracted cephalad and the cystic plate was copiously irrigated with sterile saline. There was no bleeding or apparent bile leak from the cystic plate and the clips on the cystic artery and duct were intact. All irrigation was suctioned free from the abdomen. All insufflation was suctioned free from the abdomen and the ports removed. The abdominal wall at the supraumbilical incision site was closed with a 0 Vicryl [id number] stitch. 30 mL of 0.5% Marcaine was injected subcutaneously at the 4 port sites. The skin at the four 5 mm port sites were closed with 4-0 Monocryl interrupted subcuticular stitches. The skin at the supraumbilical incision site was closed with a 4-0 Monocryl running subcuticular stitch. Steri-Strips were applied to all wounds. The patient was awoken in the operating suite having tolerated the procedure well and were taken to PACU in stable condition after all lap and ensuring counts were correct at the end of the case.
[2016-12-29] MEDS ORDERED: CloNIDine Patch 0.1 MG PATCH (WEEKLY) ONE (20:13)
--- NOTE | 2016-12-29 20:42 | Anesthesia Evaluation Post Op ---
Date of Encounter: 12/29/16 Time of Encounter: 20:41 - Vital Signs Vital Signs: Vital Signs/O2 Sat/Glucose, Most Current Temp Pulse Resp BP Pulse Ox 12/29/16 20:29 60 12 160/96 92 12/29/16 20:19 55 12 156/94 94 12/29/16 20:10 98.2 F 54 12 152/97 94 - Lungs Lungs: Clear Ascult./Percussion - Airway Airway: Non-obstructed - Cardiovascular Regular Rate - Mental Status Mental Status: Alert & Oriented, Answers Appropriately - Pain Pain Scale: 0 Pain Scale used: Numeric (1 - 10) - Nausea Vomiting Nausea Vomiting: Not Present - Hydration Hydration: Ice chips, Has not voided - Discharge PostOp Status: Transfer Patient to floor Anes Supervising Prov Stmt: Pt seen/evaluated, VSS And pt has met criteria for discharge to floor. - MD Mckinley
[2016-12-29] MEDS: Ondansetron 4 MG/2 ML VIAL IVP PRN (21:20)
[2016-12-29] MEDS ORDERED: Acetaminophen IV 1,000 MG/100 ML INFUS..BTL IVPB ONE (21:21)
[2016-12-29] MEDS ORDERED: Naloxone 0.4 MG/ML INJ IVP PRN (21:40)
[2016-12-29] MEDS ORDERED: *HR* OxyCODONE/APAP 5/325 TABLET PO PRN (21:40)
[2016-12-30] MEDS: Ipratropium/Albuterol Neb 3 ML IH SCH ×3 (03:41→11:28)
[2016-12-30 05:04] LABS: Basophils # 0.1 K/mcL (0.0-0.2); Basophils % 0.6 %; Eosinophils % 0.1 %; Hematocrit 44.6 % (37.5-50.1); Hemoglobin 14.9 g/dL (12.9-16.9); Immature Granulocytes % 0.5 % (0-4); Lymphocytes # 1.6 K/mcL (0.6-4.6); Lymphocytes % 12.4 %; Mean Corpuscular HGB Conc 33.4 g/dL (31.6-35.5); Mean Corpuscular Hemoglobin 28.4 pg (28.0-33.3); Monocytes # 0.5 K/mcL (0.0-1.3); Monocytes % 3.6 %; Neutrophils # 10.9 K/mcL (1.6-8.9); Platelet Count 231 K/mcL (140-400); Red Blood Count 5.25 M/mcL (4.19-5.50); Red Cell Distribution Width 13.2 % (11.5-14.5); Segmented Neutrophils % 82.8 %
[2016-12-30 05:16] LABS: Alanine Aminotransferase 53 Units/L (0-55); Albumin 3.2 g/dL (3.5-5.0); Alkaline Phosphatase 66 Units/L (38-126); Aspartate Amino Transferase 58 Units/L (5-34); BUN/Creatinine Ratio 10 (6-26); Bilirubin,Total 0.5 mg/dL (0.2-1.2); Blood Urea Nitrogen 9 mg/dL (8-26); Calcium 8.2 mg/dL (8.6-10.8); Carbon Dioxide 24 mEq/L (19-29); Chloride 110 mEq/L (98-109); Globulin 3.2 g/dL (2.4-3.5); Glucose 126 mg/dL (70-99); Osmolality,Calculated 294 (280-300); Potassium 4.1 mEq/L (3.5-4.5); Sodium 142 mEq/L (136-145); Total Protein 6.4 g/dL (6.0-8.3); eGFR For African Americans > 60 (> 60); eGFR For Non-African Americans > 60 (> 60)
[2016-12-30] MEDS ORDERED: *HR* Enoxaparin 40 MG/0.4 ML SYRINGE SQ SCH (06:00)
[2016-12-30 07:38] VITALS: BP 148/87
[2016-12-30] MEDS ORDERED: Nicotine 21 MG PATCH.TD24 TD SCH (09:00)
[2016-12-30] MEDS ORDERED: hydroCHLOROthiazide 25 MG TABLET PO SCH (09:00)
[2016-12-30] MEDS ORDERED: Multivit/Ca/Min/Fe/FA 1 TAB TABLET PO SCH (09:00)
--- NOTE | 2016-12-30 10:43 | General Surgery Progress Note ---
Date of Encounter: 12/30/16 Time of Encounter: 10:39 - Assessment and Plan (1) Biliary dyskinesia Current Visit: Yes Status: Chronic s/p laparoscopic cholecystectomy with Dr. Guillermo on 12/29/2016. He is tolerating a regular diet, ambulating avoiding without difficulty, discomfort is controlled on the current regimen, and passing flatus. This abdominal examines benign. He is so complicated discharge from the surgical perspective. (2) Pancreatitis Current Visit: Yes Status: Resolved See above Qualifiers: Chronicity: acute Pancreatitis type: biliary Acute pancreatitis complication: no infection or necrosis Qualified Code(s): K85.10 - Biliary acute pancreatitis without necrosis or infection (3) Smoking addiction Current Visit: Yes Status: Acute Will d/c with nicotine patch. Smoking cessation strongly encouraged Subjective Patient reports: no new complaints, feels better, pain is less, tolerating liquids well, tolerating a regular diet, voiding w/o difficulty, flatus, no bowel movement, afebrile Objective Vital Signs - Last 8 Hours Temp Pulse Resp BP Pulse Ox 12/30/16 09:00 95 12/30/16 07:32 98.3 F 65 17 148/87 95 12/30/16 03:18 98.0 F 62 16 157/93 96 Intake and Output 12/29/16 12/30/16 12/30/16 23:59 07:59 15:59 Intake Total 0 / 0 480 / 480 Output Total 405 / 405 1600 / 1600 0 / 0 Balance -405 / -405 -1600 / -1600 480 / 480 Intake: Oral 0 / 0 480 / 480 Output: Urine 400 / 400 1600 / 1600 0 / 0 Estimated Blood Loss 5 / 5 Other: Meal NPO Clears Percent of Meal Consumed 0% Weight 106.4 kg Blood Glucose* 86 Patient Weight 12/30/16 23:59 Weight 106.4 kg - General physical appearance well developed, well nourished, no distress - Eyes normal ocular movement - ENT atraumatic, normocephalic - Neck Neck exam: trachea midline, no venous distension - Respiratory normal expansion, normal respiratory effort, clear to auscultation - Cardiovascular Cardiovascular exam: Present: RRR - Abdomen Abdomen: Present: bowel sounds present, soft, tender (Expected postoperative) Hernia: none - Incision Incision: Present: clean and dry, intact - Integumentary no growths - Neurologic normal coordination - Musculoskeletal normal gait, normal posture - Psychiatric oriented to time, oriented to person, oriented to place, speech is normal, memory intact - Labs 12/30/16 04:30 12/30/16 04:30 Diabetes panel 12/30/16 Range/Units 04:30 Sodium 142 (136-145) mEq/L Potassium 4.1 (3.5-4.5) mEq/L Chloride 110 H (98-109) mEq/L Carbon Dioxide 24 (19-29) mEq/L BUN 9 (8-26) mg/dL Creatinine 0.88 (0.72-1.25) mg/dL Glucose 126 H (70-99) mg/dL Calcium 8.2 L (8.6-10.8) mg/dL AST 58 H (5-34) Units/L ALT 53 (0-55) Units/L Alkaline Phosphatase 66 (38-126) Units/L Albumin 3.2 L (3.5-5.0) g/dL Calcium panel 12/30/16 Range/Units 04:30 Calcium 8.2 L (8.6-10.8) mg/dL Albumin 3.2 L (3.5-5.0) g/dL Pituitary panel 12/30/16 Range/Units 04:30 Sodium 142 (136-145) mEq/L Potassium 4.1 (3.5-4.5) mEq/L Chloride 110 H (98-109) mEq/L Carbon Dioxide 24 (19-29) mEq/L BUN 9 (8-26) mg/dL Creatinine 0.88 (0.72-1.25) mg/dL Glucose 126 H (70-99) mg/dL Calcium 8.2 L (8.6-10.8) mg/dL Adrenal panel 12/30/16 Range/Units 04:30 Sodium 142 (136-145) mEq/L Potassium 4.1 (3.5-4.5) mEq/L Chloride 110 H (98-109) mEq/L Carbon Dioxide 24 (19-29) mEq/L BUN 9 (8-26) mg/dL Creatinine 0.88 (0.72-1.25) mg/dL Glucose 126 H (70-99) mg/dL Calcium 8.2 L (8.6-10.8) mg/dL Total Bilirubin 0.5 (0.2-1.2) mg/dL AST 58 H (5-34) Units/L ALT 53 (0-55) Units/L Alkaline Phosphatase 66 (38-126) Units/L Albumin 3.2 L (3.5-5.0) g/dL - VTE Documentation of Mechanical Device: Intermittent pneumatic compression device Consult Discharge Plan - Plan Instructions: Laparoscopic Cholecystectomy (DC) Additional Instructions: General Surgical Discharge Instructions 1. No pushing, pulling, or lifting greater than 15 lbs for two weeks. 2. You may shower beginning today, but no tub baths, soaking, or swimming for 2 weeks. 3. You may resume driving when you are off narcotics and are safe to react in a car. 4. Take narcotics as directed. Do not take more narcotics then directed and do not share your narcotics with any other person. Do not drink alcohol while on narcotics. 5. Take stool softeners (Colace) or a water based laxative (Miralax) while taking narcotics. You may hold for loose stools. 6. Report any fevers greater than 100.5F, increase abdominal discomfort, drainage that looks like pus, increased redness or pain at the surgical site, or any vomiting. 7. Report any pain in the calves, shortness of breath, or rapid heartbeat. 8. Follow-up in the office as directed. 9. If you were prescribed antibiotics, do not stop them without talking to your provider. Referrals: Bulmaro Georges MD [Primary Care Provider] - Ayleen Steel CNP [Advanced Practice Nurse] - 01/14/17 8:40 am Prescriptions: OxyCODONE/APAP 5/325 [Percocet 5/325 MG] 1 each PO Q6HR PRN #28 tablet PRN Reason: Pain Docusate Sodium [Colace] 100 mg PO BID #30 capsule Ibuprofen 800 mg PO Q8H #30 tablet Nicotine Patch [Nicoderm] 21 mg TD DAILY #30 patch.td24
--- NOTE | 2016-12-30 10:57 | Discharge Summary ---
Date of Encounter: 12/30/16 Time of Encounter: 09:25 - Discharge Diagnosis (1) Pancreatitis Priority: Primary Status: Resolved Qualifiers: Chronicity: acute Pancreatitis type: biliary Acute pancreatitis complication: no infection or necrosis Qualified Code(s): K85.10 - Biliary acute pancreatitis without necrosis or infection (2) Cholelithiasis Priority: Secondary Status: Acute Qualifiers: Cholelithiasis location: gallbladder Cholecystitis presence: without cholecystitis Biliary obstruction: without biliary obstruction Qualified Code(s): K80.20 - Calculus of gallbladder without cholecystitis without obstruction (3) Chest pain Priority: Secondary Status: Resolved Qualifiers: Chest pain type: other chest pain Qualified Code(s): R07.89 - Other chest pain; R07.8 - Other chest pain (4) Biliary dyskinesia Priority: Secondary Status: Chronic (5) DVT prophylaxis Priority: Secondary Status: Acute (6) HTN (hypertension) Priority: Secondary Status: Chronic Qualifiers: Hypertension type: essential hypertension Qualified Code(s): I10 - Essential (primary) hypertension (7) Tobacco abuse Priority: Secondary Status: Chronic (8) Dizziness Priority: Secondary Status: Chronic - Discharge Medications Prescriptions: OxyCODONE/APAP 5/325 [Percocet 5/325 MG] 1 each PO Q6HR PRN #28 tablet PRN Reason: Pain Docusate Sodium [Colace] 100 mg PO BID #30 capsule Ibuprofen 800 mg PO Q8H #30 tablet Nicotine Patch [Nicoderm] 21 mg TD DAILY #30 patch.td24 Home Medications: Aspirin/Acetaminophen/Caffeine [Excedrin Extra Strength Caplet] 1 tab PO BID PRN 10/07/15 [History] Lisinopril [Zestril] 5 mg PO DAILY 10/07/15 [History] Multivitamin [Multi-Day Vitamins] 1 tab PO DAILY 10/07/15 [History] hydroCHLOROthiazide [Hydrochlorothiazide] 25 mg PO DAILY 10/07/15 [History] Docusate Sodium [Colace] 100 mg PO BID #30 capsule 12/30/16 [Rx] Ibuprofen 800 mg PO Q8H #30 tablet 12/30/16 [Rx] Nicotine Patch [Nicoderm] 21 mg TD DAILY #30 patch.td24 12/30/16 [Rx] OxyCODONE/APAP 5/325 [Percocet 5/325 MG] 1 each PO Q6HR PRN #28 tablet 12/30/16 [Rx] Allergies/Adverse Reactions: 3 Allergy/AdvReac Type Severity Reaction Status Date / Time No Known Allergies Allergy Verified 12/27/16 19:14 Procedures/tests Complete & Pending: Procedures Performed prior 72 hours Category Date Time Status ECG 12 lead ECG [ECG] Routine Y 12/30/16 01:40 Completed Date of admission: 12/27/16 20:22 Primary care physician: Bulmaro Georges MD Consults: Surgery Discharging clinician: Kiko Richardson Anticipated date of discharge: 12/30/16 - Patient Status Disposition: Home, Self-Care Condition: Good Functional capacity at discharge: independent ambulation Overall status at discharge: patient is progressing back to baseline - Discharge Instructions Instructions: Ibuprofen (By mouth), Oxycodone/Acetaminophen (By mouth), Laxative, Stool Softeners (By mouth), Nicotine (Absorbed through the skin), Pancreatitis (DC), Laparoscopic Cholecystectomy (DC), Chronic Hypertension (DC) Follow Up With: Ayleen Steel HOSPITAL NURSING ASSISTANT [Advanced Practice Nurse] - 01/14/17 8:40 am Additional Instructions: General Surgical Discharge Instructions 1. No pushing, pulling, or lifting greater than 15 lbs for two weeks. 2. You may shower beginning today, but no tub baths, soaking, or swimming for 2 weeks. 3. You may resume driving when you are off narcotics and are safe to react in a car. 4. Take narcotics as directed. Do not take more narcotics then directed and do not share your narcotics with any other person. Do not drink alcohol while on narcotics. 5. Take stool softeners (Colace) or a water based laxative (Miralax) while taking narcotics. You may hold for loose stools. 6. Report any fevers greater than 100.5F, increase abdominal discomfort, drainage that looks like pus, increased redness or pain at the surgical site, or any vomiting. 7. Report any pain in the calves, shortness of breath, or rapid heartbeat. 8. Follow-up in the office as directed. 9. If you were prescribed antibiotics, do not stop them without talking to your provider. - Diet and Activity Activity: increase activity as tolerated Diet: low fat, low cholesterol, low salt diet Hospital course: Mr. Campbell is a 51 year old male patient with a history of hypertension and biliary dyskinesia was admitted here with acute biliary pancreatitis. He was kept nothing by mouth and treated with intravenous fluids and pain medications. CT scan of the abdomen and pelvis showed a normal-appearing pancreas and cholelithiasis without evidence of cholecystitis. Patient was evaluated by surgery and recommended laparoscopic cholecystectomy. Patient underwent this procedure yesterday and is now doing well. He is tolerating oral diet well and has been cleared for discharge by surgery. He will be discharged home today. Patient did complain of some chest pain. His EKG did not show any acute abnormalities. He had slight elevation in troponin which was stable over 6 hours. His chest pain has since improved. 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 He is being followed by cardiology as outpatient for further management. He also has chronic dizziness for which workup is being done as outpatient. His telemetry here did not reveal any significant abnormal rhythms. He has already had a 30 day event monitor. 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 Absent: accessory muscle use, rales, rhonchi, wheezes - Cardiovascular Cardiovascular exam: Present: RRR, +S1, +S2. Absent: diastolic murmur, gallop, rubs, systolic murmur - GI/Abdominal GI/Abdominal exam: Present: normal bowel sounds, soft, no peritoneal signs. Absent: distended, tenderness - Extremities Exam Extremities exam: Present: warm, radial pulses palpable and symmetrical. Absent : calf tenderness, cyanotic, pedal edema - Neurological Exam Neurological exam: Present: no focal deficits. Absent: facial droop, speech deficit - VTE Documentation of Mechanical Device: Intermittent pneumatic compression device
--- NOTE | 2016-12-30 18:16 | Electrocardiograph Report ---
[address] [place], [place] [address] Test Date: 2016-12-30 Pat Name: Geraldo Campbell Department: 115 Room: 3A46 Gender: Clinical Data Associate: [id number] : 1965 Requested By: Kiko Richardson Order Number: [id number] Reading MD: Darren Rogers MD Measurements Intervals [place] Rate: 65 P: 30 NH: 160 QRS: 40 QRSD: 95 T: 44 QT: 447 QTc: 458 Interpretive Statements SINUS RHYTHM Electronically Signed On 12-30-2016 18:15:07 EST by Darren Rogers MD
== END 2016-12-30 13:40 | disposition home or self-care (01) | DRG 417 ==
LOC: EMEROO 13:18 → 3ANU 13:18 → SUATTDRO 20:22
PROVIDERS: ADMIT Internal Medicine; ATTEND Internal Medicine

== ENCOUNTER 2020-06-02 17:58 | Observation (INO) ==
[2020-06-02] MEDS: Nitroglycerin 0.4 MG TAB.SUBL SL PRN ×2 (18:46→18:52)
[2020-06-02 18:50] LABS: Basophils # 0.1 K/mcL (0.0-0.2); Eosinophils # 0.5 K/mcL (0.0-0.6); Eosinophils % 3.6 %; Hematocrit 48.2 % (37.5-50.1); Hemoglobin 16.1 g/dL (12.9-16.9); Immature Granulocytes % 0.3 % (0-4); Lymphocytes # 4.9 K/mcL (0.6-4.6); Lymphocytes % 34.9 %; Mean Corpuscular HGB Conc 33.4 g/dL (31.6-35.5); Mean Corpuscular Hemoglobin 30.8 pg (28.0-33.3); Mean Corpuscular Volume 92.3 fL (83.0-100.0); Mean Platelet Volume 9.7 fL (9.4-12.4); Monocytes # 0.7 K/mcL (0.0-1.3); Neutrophils # 7.7 K/mcL (1.6-8.9); Platelet Count 239 K/mcL (140-400); Red Blood Count 5.22 M/mcL (4.19-5.50); Red Cell Distribution Width 13.1 % (11.5-14.5); Segmented Neutrophils % 55.2 %; White Blood Count 13.9 K/mcL (4.3-11.1)
[2020-06-02 19:06] LABS: Platelet Estimate Normal (Normal); Reactive Lymphocytes Present (Not Present)
[2020-06-02 19:09] LABS: Alanine Aminotransferase 27 Units/L (7-52); Albumin 4.2 g/dL (3.5-5.7); Alkaline Phosphatase 77 Units/L (34-104); Aspartate Amino Transferase 34 Units/L (13-39); BUN/Creatinine Ratio 12 (6-26); Bilirubin,Total 0.7 mg/dL (0.3-1.0); Blood Urea Nitrogen 12 mg/dL (6-20); Calcium 9.3 mg/dL (8.6-10.3); Carbon Dioxide 28 mEq/L (23-29); Chloride 105 mEq/L (98-107); Glucose 91 mg/dL (70-105); Osmolality,Calculated 289 (280-300); Potassium 3.1 mEq/L (3.5-5.1); Sodium 140 mEq/L (136-145); Total Protein 6.8 g/dL (6.4-8.9); eGFR For African Americans > 60 (> 60); eGFR For Non-African Americans > 60 (> 60)
[2020-06-02 19:10] LABS: Albumin/Globulin Ratio 1.6 (1.1-2.2); Globulin 2.6 g/dL (2.4-3.5); Troponin I 0.03 ng/mL (< 0.04)
[2020-06-02] MEDS ORDERED: Ondansetron 4 MG/2 ML VIAL IVP PRN (21:07)
[2020-06-02] MEDS ORDERED: Naloxone 0.4 MG/ML INJ IVP PRN (21:07)
[2020-06-02] MEDS ORDERED: Acetaminophen 325 MG TABLET PO PRN (21:07)
[2020-06-02] MEDS: Nicotine 14 MG PATCH.TD24 TD SCH (22:26)
[2020-06-02] MEDS ORDERED: cefTRIAXone 1,000 MG in Water for inj. (sterile) 10 ML IVP SCH (23:00)
[2020-06-02] MEDS ORDERED: Azithromycin 500 MG in 0.9 % Sodium Chloride 250 ML IVPB SCH (23:00)
[2020-06-03] MEDS ORDERED: *HR* Heparin 5,000 UNIT/ML VIAL IVP PRN ×2 (03:13)
[2020-06-03] MEDS ORDERED: *HR* Heparin 5,000 UNIT/ML VIAL IVP ONE (03:13)
[2020-06-03] MEDS ORDERED: Heparin 25,000UNIT/250ML 1/2NS 25,000 UNIT/250 ML IV.SOLN IVC SCH (03:15)
[2020-06-03 03:51] LABS: Basophils # 0.1 K/mcL (0.0-0.2); Basophils % 1.1 %; Eosinophils # 0.6 K/mcL (0.0-0.6); Hematocrit 46.3 % (37.5-50.1); Hemoglobin 15.6 g/dL (12.9-16.9); Immature Granulocytes % 0.3 % (0-4); Lymphocytes # 3.9 K/mcL (0.6-4.6); Lymphocytes % 35.1 %; Mean Corpuscular HGB Conc 33.7 g/dL (31.6-35.5); Monocytes # 0.8 K/mcL (0.0-1.3); Monocytes % 6.7 %; Neutrophils # 5.8 K/mcL (1.6-8.9); Platelet Count 224 K/mcL (140-400); Red Blood Count 5.03 M/mcL (4.19-5.50); Red Cell Distribution Width 13.2 % (11.5-14.5); Segmented Neutrophils % 51.8 %; White Blood Count 11.2 K/mcL (4.3-11.1)
[2020-06-03 04:02] LABS: Heparin anti-factor XA UFH < 0.04 IU/mL (0.30-0.70)
[2020-06-03 04:03] LABS: INR 1.1; Prothrombin Time 12.8 Seconds (9.4-12.1)
[2020-06-03 04:06] LABS: BUN/Creatinine Ratio 14 (6-26); Blood Urea Nitrogen 14 mg/dL (6-20); Calcium 8.8 mg/dL (8.6-10.3); Carbon Dioxide 26 mEq/L (23-29); Chloride 109 mEq/L (98-107); Chol/HDL Ratio 4.5 (0-4.9); Cholesterol 135 mg/dL (< 200); Glucose 107 mg/dL (70-105); HDL Cholesterol 30 mg/dL (40-59); LDL Cholesterol,Calculated 77 mg/dL (< 100); Magnesium 1.9 mg/dL (1.6-2.6); Osmolality,Calculated 293 (280-300); Potassium 3.6 mEq/L (3.5-5.1); Sodium 141 mEq/L (136-145); Triglycerides 142 mg/dL (< 150); eGFR For African Americans > 60 (> 60); eGFR For Non-African Americans > 60 (> 60)
[2020-06-03] MEDS ORDERED: *HR* Enoxaparin 40 MG/0.4 ML SYRINGE SQ SCH (06:00)
[2020-06-03] MEDS ORDERED: Regadenoson 0.4 MG/5 ML SYRINGE IVP ONE (07:01)
[2020-06-03] MEDS: Cholestyramine 4 GM POWD.PACK PO SCH ×2 (08:32→11:36)
[2020-06-03] MEDS ORDERED: Multivit/Ca/Min/Fe/FA 1 TAB TABLET PO SCH (09:00)
[2020-06-03] MEDS ORDERED: hydroCHLOROthiazide 25 MG TABLET PO SCH (09:00)
[2020-06-03] MEDS ORDERED: Aspirin Enteric Coated 81 MG Tablet PO SCH (09:00)
[2020-06-03] MEDS ORDERED: lisinopriL 5 MG TABLET PO SCH (09:15)
[2020-06-03] MEDS: Nicotine 14 MG PATCH.TD24 TD SCH (09:23)
[2020-06-03 10:42] VITALS: BP 145/76
[2020-06-03] MEDS ORDERED: lisinopriL 5 MG TABLET PO ONE (13:24)
[2020-06-03] MEDS ORDERED: Perflutren Lipid Microsphere 1.3 ML in 0.9 % Sodium Chloride 8.7 ML IVP PRN (13:29)
[2020-06-03] MEDS ORDERED: Metoprolol XL (24 HR) Succ 25 MG TAB.ER.24H PO SCH (14:30)
[2020-06-04] MEDS ORDERED: lisinopriL 5 MG TABLET PO SCH (09:00)
== END 2020-06-03 15:56 | disposition home or self-care (01) ==
LOC: EMEROOARM 17:58 → 3BNU 17:58 → SUATTDRO 20:39 → 3BNU 21:10
PROVIDERS: ADMIT Internal Medicine; ATTEND Internal Medicine

== ENCOUNTER 2021-11-11 12:50 | Observation (INO) ==
[2021-11-11 13:46] LABS: Basophils # 0.1 K/mcL (0.0-0.2); Basophils % 0.9 %; Eosinophils # 0.2 K/mcL (0.0-0.6); Eosinophils % 2.8 %; Hematocrit 46.1 % (37.5-50.1); Hemoglobin 15.5 g/dL (12.9-16.9); Immature Granulocytes % 0.4 % (0-4); Lymphocytes # 2.2 K/mcL (0.6-4.6); Lymphocytes % 29.4 %; Mean Corpuscular HGB Conc 33.6 g/dL (31.6-35.5); Mean Corpuscular Hemoglobin 29.5 pg (28.0-33.3); Mean Corpuscular Volume 87.8 fL (83.0-100.0); Mean Platelet Volume 10.1 fL (9.4-12.4); Monocytes # 0.6 K/mcL (0.0-1.3); Neutrophils # 4.4 K/mcL (1.6-8.9); Platelet Count 195 K/mcL (140-400); Red Blood Count 5.25 M/mcL (4.19-5.50); Red Cell Distribution Width 13.4 % (11.5-14.5); Segmented Neutrophils % 58.5 %; White Blood Count 7.5 K/mcL (4.3-11.1)
[2021-11-11] MEDS ORDERED: Aspirin 325 MG TABLET PO ONE ×2 (13:50→18:13)
[2021-11-11] MEDS ORDERED: Ketorolac 30 MG/ML VIAL IVP ONE (13:50)
[2021-11-11] MEDS ORDERED: Nitroglycerin 0.4 MG TAB.SUBL SL PRN ×2 (13:50→18:07)
[2021-11-11 13:56] LABS: INR 1.1; Prothrombin Time 12.6 Seconds (9.4-12.1)
[2021-11-11 13:59] LABS: Activated Partial Thrombo Time 34.3 Seconds (26.0-36.0)
[2021-11-11 14:11] LABS: Magnesium 1.6 mg/dL (1.6-2.6)
[2021-11-11 14:21] LABS: Calcium 9.7 mg/dL (8.6-10.3); Potassium 3.7 mEq/L (3.5-5.1); Troponin I 0.04 ng/mL (< 0.04)
[2021-11-11 14:25] LABS: Thyroid Stimulating Hormone 1.956 mcIU/mL (0.340-5.600)
[2021-11-11] MEDS ORDERED: Iopamidol - 370 500 ML MLS IVP ONE (14:58)
[2021-11-11] MEDS ORDERED: Naloxone 0.4 MG/ML INJ IVP PRN (17:50)
[2021-11-11] MEDS ORDERED: Melatonin 3 MG TABLET PO PRN (18:07)
[2021-11-11] MEDS: hydroCHLOROthiazide 25 MG TABLET PO SCH (21:07)
[2021-11-11] MEDS: amLODIPine 5 MG TABLET PO SCH (21:08)
[2021-11-12 03:23] VITALS: O2SAT 93
[2021-11-12 03:24] LABS: Basophils # 0.1 K/mcL (0.0-0.2); Eosinophils # 0.4 K/mcL (0.0-0.6); Eosinophils % 4.8 %; Hematocrit 45.5 % (37.5-50.1); Immature Granulocytes % 0.3 % (0-4); Lymphocytes # 2.6 K/mcL (0.6-4.6); Lymphocytes % 35.5 %; Mean Corpuscular Hemoglobin 29.3 pg (28.0-33.3); Mean Corpuscular Volume 88.9 fL (83.0-100.0); Mean Platelet Volume 9.9 fL (9.4-12.4); Monocytes # 0.6 K/mcL (0.0-1.3); Monocytes % 8.7 %; Neutrophils # 3.6 K/mcL (1.6-8.9); Platelet Count 169 K/mcL (140-400); Red Blood Count 5.12 M/mcL (4.19-5.50); Red Cell Distribution Width 13.5 % (11.5-14.5); Segmented Neutrophils % 49.7 %; White Blood Count 7.2 K/mcL (4.3-11.1)
[2021-11-12 03:44] LABS: Calcium 9.4 mg/dL (8.6-10.3); Potassium 3.4 mEq/L (3.5-5.1)
[2021-11-12] MEDS: amLODIPine 5 MG TABLET PO SCH (08:51)
[2021-11-12] MEDS: hydroCHLOROthiazide 25 MG TABLET PO SCH (08:51)
[2021-11-12] MEDS ORDERED: lisinopriL 10 MG TABLET PO SCH (09:00)
[2021-11-12] MEDS ORDERED: Metoprolol XL (24 HR) Succ 25 MG TAB.ER.24H PO SCH (09:00)
[2021-11-12 10:06] VITALS: BP 159/97; PULSE 71; TEMP 97.9
== END 2021-11-12 13:04 | disposition home or self-care (01) ==
LOC: 3BNU 12:50 → EMEROOARM 12:50 → 3BNU 19:08
PROVIDERS: ADMIT Internal Medicine; ATTEND Internal Medicine